=== PATIENT | female | born 1990 | race Caucasian/White ===

== ENCOUNTER → 2018-10-11 | Outpatient (CLI) | payer OTHER ==
--- NOTE | 2018-10-11 18:28 | REP ---
HISTORY: History of bronchitis. COMPARISON: None. FINDINGS: The superior mediastinal structures are midline. The cardiac silhouette is unremarkable in size, shape and position. The diaphragmatic surfaces of the lungs are regular and the costophrenic angles are clear. The pulmonary parker are clear. The imaged osseous structures are intact. IMPRESSION: There is no acute cardiopulmonary disease. Electronically Signed by Steve Ribera DO 10/11/2018 07:35 P
== END ==
LOC: M LRY 17:14
PROVIDERS: ATTEND Student in an Organized Health Care Education/Training Program
DX: J40 Bronchitis, not specified as acute or chronic (principal)

== ENCOUNTER 2018-11-10 22:23 | Emergency (ER) | payer OTHER ==
[~2018-11-10] VITALS: Ht 152.4 cm; Wt 70.4 kg
[2018-11-10] MEDS ORDERED: methylPREDNISolone INJ 125 MG/2 ML VIAL (J2930) IV ONE (23:45)
[2018-11-10] MEDS ORDERED: IPRATROPIUM 0.5MG/ALBUTEROL 2.5MG INH SOL UD 3ML (DUONEB)(J7620) NEB ONE (23:45)
[2018-11-11] MEDS: ALBUTEROL SULFATE 2.5 MG/0.5 ML INH NEB SOLN INH PRN ×2 (00:18→00:41)
[2018-11-11 00:36] LABS: BASO # 0.1 10^3/uL (0.0-0.2); BASO % 0.8 % (0.0-1.0); EOS # 0.6 10^3/uL (0.0-0.5); EOS % 5.9 % (0.0-3.0); HEMATOCRIT 41.7 % (36.0-47.0); HEMOGLOBIN 14.5 g/dl (12.0-15.5); LYMPH # 3.2 10^3/uL (1.5-5.0); LYMPH % 32.4 % (24.0-44.0); MEAN CORPUSCULAR HGB CONC 34.8 g/dl (32.0-36.5); MEAN CORPUSCULAR VOLUME 97.9 fl (80.0-96.0); MONO % 10.2 % (0.0-5.0); NEUTROPHILS # 4.9 10^3/uL (1.5-8.5); NEUTROPHILS % 50.5 % (36.0-66.0); PLATELET COUNT, AUTOMATED 283 10^3/uL (150-450); RED BLOOD COUNT 4.26 10^6/uL (4.00-5.40); WHITE BLOOD COUNT 9.7 10^3/uL (4.0-10.0)
[2018-11-11 00:38] LABS: BLOOD UREA NITROGEN 14 MG/DL (7-18); CALCIUM LEVEL 9.2 MG/DL (8.5-10.1); CARBON DIOXIDE LEVEL 25 MEQ/L (21-32); CHLORIDE LEVEL 110 MEQ/L (98-107); GLOMERULAR FILTRATION RATE > 60.0 (>60); GLUCOSE, FASTING 98 MG/DL (70-100); POTASSIUM SERUM 4.4 MEQ/L (3.5-5.1); SODIUM LEVEL 141 MEQ/L (136-145)
[2018-11-11] MEDS ORDERED: VENTAER INH (02:27)
[2018-11-11] MEDS ORDERED: PRED20TA PO (02:27)
[2018-11-11] MEDS ORDERED: ALL10TAB29 PO (02:27)
[2018-11-11 02:34] VITALS: BP 111/73
--- NOTE | 2018-11-11 09:19 | REP ---
TWO-VIEW CHEST: REASON: Cough and dyspnea. PRIOR EXAM: 10/11/2018 FINDINGS: The superior mediastinal structures are midline. The cardiac silhouette is unremarkable in size, shape, and position. The diaphragmatic surfaces of the lungs are regular, and the costophrenic angles are clear. The pulmonary parker are clear. The imaged osseous structures are intact. IMPRESSION: There is no acute cardiopulmonary disease. Electronically Signed by Steve Ribera DO 11/11/2018 09:24 A
== END 2018-11-11 02:39 | disposition home or self-care (01) ==
LOC: M ED 22:23
DX: J20.9 Acute bronchitis, unspecified (principal); Z88.0 Allergy status to penicillin
CPT/HCPCS: 71046; 80048; 85025; 87486; 87581; 87633; 87798; 94640; 96374; 99284; J2930

== ENCOUNTER → 2019-01-16 | Outpatient (REF) | payer OTHER ==
[~2019-01-16] MED LIST: ALL10TAB29 PO; PRED20TA PO; VENTAER INH
== END ==
LOC: M SFHCPLAZ 08:42
PROVIDERS: ATTEND Family Medicine
DX: Z83.49 Family history of other endocrine, nutritional and metabolic diseases (principal)